=== PATIENT | female | born 1990 | race Asian ===

== ENCOUNTER 2022-08-18 01:09 | Emergency (ER) | payer SELFPAY ==
[~2022-08-18] VITALS: Ht 162.6 cm; Wt 62.0 kg
[2022-08-18 01:19] VITALS: BP 113/78
[2022-08-18] MEDS ORDERED: TETANUS, DIPHTHERIA, PERTUSSIS VAC/PF 0.5ML (>10YR OLD) IM ONE (01:30)
[2022-08-18] MEDS ORDERED: ACETAMINOPHEN 500MG TABLET PO ONE (01:30)
[2022-08-18] MEDS ORDERED: ACET-2708 MT (02:18)
== END 2022-08-18 02:55 | disposition home or self-care (01) ==
LOC: ER 01:09
DX: S09.90XA Unspecified injury of head, initial encounter (principal); W22.8XXA Striking against or struck by other objects, initial encounter; Y93.89 Activity, other specified; Y92.89 Other specified places as the place of occurrence of the external cause; Y99.8 Other external cause status
CPT/HCPCS: 12001; 90471; 90715; 99283; Z7610